=== PATIENT | female | born 1985 | race Caucasian/White ===

== ENCOUNTER → 2017-01-09 | Outpatient (CLI) | payer OTHER ==
--- NOTE | 2017-01-09 15:47 | US ---
EXAMINATION TYPE: US OB <= 14 wk fetus DATE OF EXAM: 01/09/2017 COMPARISON: NONE CLINICAL HISTORY: O76 ABSENT HEART TONES. EXAM PERFORMED: Transabdominal (TA) EXAM MEASUREMENTS: GESTATIONAL AGE / DATING Physician Established: not established yet Dates by LMP: (16 weeks/3 days) EDC: 06/23/2017 Dates by First Scan: no previous here Dates by Current Scan for: non viable iup MATERNAL ANATOMY Uterus: 13.2 x 6.7 x 9.0cm Right Ovary: 3.2 x 1.8 x 1.7cm Left Ovary: 2.8 x 1.5 x 1.9cm Post CDS / Adnexa: wnl Presence of free fluid: none seen GESTATION / SURVEY CRL: 1.7cm (8 weeks/1 days) MSD: 5.5cm (11 weeks/4 days) Yolk Sac (normal less than 6mm): not seen Heart Rate: 0 bpm Demise Results called to Joselin in the office at the time of the exam; pt sent back to the office. IMPRESSION: 1. A pole is seen. A heart rate could not be detected. Report was sent to the patient's referri ng clinician.
== END | disposition home or self-care (01) ==
LOC: RADUSWWP 15:15
PROVIDERS: ATTEND Obstetrics & Gynecology Obstetrics
DX: O76 Abnormality in fetal heart rate and rhythm complicating labor and delivery (principal); Z3A.00 Weeks of gestation of pregnancy not specified
CPT/HCPCS: 76801

== ENCOUNTER 2017-01-10 06:29 | Emergency (ER) | payer OTHER ==
[2017-01-10] MEDS ORDERED: MORPHINE SULFATE 4 MG/ML SYRINGE IVP STA (07:50)
[2017-01-10 08:01] LABS: Basophils % (A) 0 %; CH 34.2; CHCM 36.6; Eosinophils # (A) 0.1 k/uL (0-0.7); Eosinophils % (A) 1 %; HCT 37.2 % (34.0-46.0); HDW 2.58; HGB 13.2 gm/dL (11.4-16.0); Luc # (Auto) 0.07; Luc % (Auto) 1; Lymphocytes % (A) 12 %; MCH 33.2 pg (25.0-35.0); MCHC 35.4 g/dL (31.0-37.0); MCV 93.9 fL (80.0-100.0); Mean Platelet Volume 8.1; Monocytes # (A) 0.3 k/uL (0-1.0); Monocytes % (A) 4 %; Neutrophils # (A) 6.9 k/uL (1.3-7.7); Neutrophils % (A) 83 %; RBC 3.97 m/uL (3.80-5.40); RDW 12.5 % (11.5-15.5); WBC 8.4 k/uL (3.8-10.6); WBC (Perox) 8.43
[2017-01-10 08:12] LABS: Anion Gap 8 mmol/L; Blood Urea Nitrogen 7 mg/dL (7-17); Calcium 9.2 mg/dL (8.4-10.2); Carbon Dioxide 25 mmol/L (22-30); Chloride 106 mmol/L (98-107); Glucose 90 mg/dL (74-99); Non-African American GFR(MDRD) >60 (>60 ml/min/1.73 sqM); Sodium 139 mmol/L (137-145)
[2017-01-10 08:28] LABS: HCG,Quantitative Serum 11014.2 mIU/mL
--- NOTE | 2017-01-10 08:49 | ED ---
General Adult HPI - General Chief complaint: Vaginal Bleeding Stated complaint: miscarriage Time Seen by Provider: 01/10/17 07:03 Source: patient, RN notes reviewed Mode of arrival: ambulatory Limitations: no limitations - History of Present Illness Initial comments: 31-year-old female presenting with vaginal bleeding. Patient is currently 16 weeks by LMP. She had an outpatient ultrasound yesterday that showed demise at approximately 8-9 weeks gestation. Patient began bleeding this morning, passing large clots. Is also having abdominal cramping. Patient is uncertain of her blood type. She has not had outpatient TECHNICAL COORDINATOR follow-up. She does have an appointment at 9:30 this morning with OB. Patient is - Related Data Home Medications Medication Instructions Recorded Confirmed Acetaminophen [Tylenol Extra 500 mg PO DAILY PRN 01/10/17 01/10/17 Strength] Pediatric Multivitamin No.30 1 tab PO DAILY 01/10/17 01/10/17 [Multivitamin Children's Gummies] Allergies Allergy/AdvReac Type Severity Reaction Status Date / Time amoxicillin Allergy Unknown Verified 01/10/17 08:08 Review of Systems ROS Statement: Those systems with pertinent positive or pertinent negative responses have been documented in the HPI. ROS Other: All systems not noted in ROS Statement are negative. Past Medical History Past Medical History: No Reported History Additional Past Medical History / Comment(s): post depression History of Any Multi-Drug Resistant Organisms: None Reported Additional Past Surgical History / Comment(s): varicose vein sx Past Psychological History: No Psychological Hx Reported Smoking Status: Never smoker Past Alcohol Use History: Occasional Past Drug Use History: None Reported General Exam Limitations: no limitations General appearance: alert, in no apparent distress Head exam: Present: atraumatic, normocephalic Eye exam: Present: normal appearance, PERRL ENT exam: Present: normal exam, mucous membranes moist Neck exam: Present: normal inspection. Absent: tenderness, meningismus Respiratory exam: Present: normal lung sounds bilaterally. Absent: respiratory distress, wheezes Cardiovascular Exam: Present: regular rate, normal rhythm GI/Abdominal exam: Present: soft. Absent: distended, tenderness External exam: Present: normal external exam Speculum exam: Present: vaginal bleeding, other (Cervix is open, there is tissue projecting from the cervical os.) Extremities exam: Present: normal inspection, normal capillary refill. Absent: pedal edema Neurological exam: Present: alert, oriented X3, CN II-XII intact. Absent: motor sensory deficit Psychiatric exam: Present: normal affect, normal mood Skin exam: Present: warm, dry. Absent: cyanosis, diaphoretic Course Vital Signs 01/10/17 06:30 Temperature 96.9 F L Pulse Rate 61 Respiratory 18 Rate Blood Pressure 103/51 O2 Sat by Pulse 100 Oximetry - Reevaluation(s) Reevaluation #1: 01/10/17 08:54 Emergency Department patient experiences some additional cramping and continued passage of blood clots, no tissue. Medical Decision Making - Medical Decision Making 31-year-old female presenting with impending miscarriage. Patient had outpatient ultrasound yesterday that showed demise at 9 weeks, she is 16 weeks by LMP. Examination shows normal vital signs, well-appearing patient, there is vaginal bleeding on pelvic exam, with dilated cervical os and tissue presenting. Laboratory studies are obtained including serum quantitative, which is 11,000 which is consistent with more recent demise. Patient does admit to cramping lower abdominal pain which began about 2 weeks ago and has been intermittent. Hemoglobin stable, but type O+. Patient has an appointment with TECHNICAL COORDINATOR at 9: 30. She'll be discharged so that she may keep this appointment. - Lab Data Result diagrams: 01/10/17 07:45 01/10/17 07:45 Lab Results 01/10/17 01/10/17 01/10/17 Range/Units 07:45 07:45 07:45 WBC 8.4 (3.8-10.6) k/uL RBC 3.97 (3.80-5.40) m/uL Hgb 13.2 (11.4-16.0) gm/dL Hct 37.2 (34.0-46.0) % MCV 93.9 (80.0-100.0) fL MCH 33.2 (25.0-35.0) pg MCHC 35.4 (31.0-37.0) g/dL RDW 12.5 (11.5-15.5) % Plt Count 209 (150-450) k/uL Neutrophils % 83 % Lymphocytes % 12 % Monocytes % 4 % Eosinophils % 1 % Basophils % 0 % Neutrophils # 6.9 (1.3-7.7) k/uL Lymphocytes # 1.0 (1.0-4.8) k/uL Monocytes # 0.3 (0-1.0) k/uL Eosinophils # 0.1 (0-0.7) k/uL Basophils # 0.0 (0-0.2) k/uL Sodium 139 (137-145) mmol/L Potassium 4.0 (3.5-5.1) mmol/L Chloride 106 (98-107) mmol/L Carbon Dioxide 25 (22-30) mmol/L Anion Gap 8 mmol/L BUN 7 (7-17) mg/dL Creatinine 0.57 (0.52-1.04) mg/dL Est GFR (MDRD) Af Amer >60 (>60 ml/min/1.73 sqM) Est GFR (MDRD) Non-Af >60 (>60 ml/min/1.73 sqM) Glucose 90 (74-99) mg/dL Calcium 9.2 (8.4-10.2) mg/dL HCG, Quant 68913.2 mIU/mL Blood Type O Positive Blood Type Recheck No Antibody Screen NEGATIVE Spec Expiration Date 01/13/20172344 Disposition Clinical Impression: Incomplete Disposition: HOME SELF-CARE Condition: Good Instructions: Miscarriage (ED) Referrals: Bree Orlando DO [Primary Care Provider] - 1-2 days Concepción Johnston DO [Doctor of Osteopathic Medicine] - 1-2 days Time of Disposition: 08:49
[2017-01-10 09:10] VITALS: BP 108/72; PULSE 90; RESP 20; TEMP 97.8
== END 2017-01-10 09:05 | disposition home or self-care (01) ==
LOC: EC 06:29
DX: O03.4 Incomplete spontaneous abortion without complication (principal); Z79.899 Other long term (current) drug therapy; Z88.0 Allergy status to penicillin; Z3A.16 16 weeks gestation of pregnancy
CPT/HCPCS: 36415; 86900; 86901; 80048; 85025; 86850; 84702; 99284; 96374; J2270; 88305

== ENCOUNTER → 2017-01-11 | Outpatient (CLI) | payer OTHER | END | disposition home or self-care (01) | LOC: LABWHC1 10:01 | PROVIDERS: ATTEND Obstetrics & Gynecology Obstetrics | DX: O02.1 Missed abortion (principal) | CPT/HCPCS: 36415; 84702 ==

== ENCOUNTER → 2017-01-18 | Outpatient (CLI) | payer OTHER | END | disposition home or self-care (01) | LOC: LABWHC1 10:16 | PROVIDERS: ATTEND Obstetrics & Gynecology Obstetrics | DX: O02.1 Missed abortion (principal) | CPT/HCPCS: 36415; 84702 ==

== ENCOUNTER → 2017-01-26 | Outpatient (CLI) | payer OTHER | END | disposition home or self-care (01) | LOC: LABWHC1 09:37 | PROVIDERS: ATTEND Obstetrics & Gynecology Obstetrics | DX: O02.1 Missed abortion (principal) | CPT/HCPCS: 36415; 84702 ==

== ENCOUNTER → 2017-02-10 | Outpatient (CLI) | payer OTHER | END | disposition home or self-care (01) | LOC: LABWHC1 10:04 | PROVIDERS: ATTEND Obstetrics & Gynecology Obstetrics | DX: O02.1 Missed abortion (principal) | CPT/HCPCS: 36415; 84702 ==

== ENCOUNTER → 2017-02-22 | Outpatient (CLI) | payer OTHER | END | disposition home or self-care (01) | LOC: LABWHC1 10:33 | PROVIDERS: ATTEND Obstetrics & Gynecology Obstetrics | DX: O02.1 Missed abortion (principal); Z3A.00 Weeks of gestation of pregnancy not specified | CPT/HCPCS: 36415; 84702 ==

== ENCOUNTER → 2017-03-09 | Outpatient (CLI) | payer OTHER ==
[2017-03-09 13:41] LABS: CH 32.4; CHCM 33.4; HCT 38.5 % (34.0-46.0); HGB 12.9 gm/dL (11.4-16.0); MCH 32.6 pg (25.0-35.0); MCHC 33.5 g/dL (31.0-37.0); MCV 97.3 fL (80.0-100.0); Mean Platelet Volume 7.5; RBC 3.96 m/uL (3.80-5.40); RDW 12.1 % (11.5-15.5); WBC 5.3 k/uL (3.8-10.6)
[2017-03-09 19:03] LABS: Treponemal Ab Non-Reactive (Non-Reactive)
== END | disposition home or self-care (01) ==
LOC: LABWHC1 12:25
PROVIDERS: ATTEND Obstetrics & Gynecology Obstetrics
DX: O02.1 Missed abortion (principal); Z20.2 Contact with and (suspected) exposure to infections with a predominantly sexual mode of transmission
CPT/HCPCS: 36415; 84702; 85027; 86780; 87340; 87390

== ENCOUNTER 2017-03-16 11:34 | Day surgery (SDC) | payer OTHER ==
[2017-03-15 10:41] VITALS: BMI 23.3
--- NOTE | 2017-03-15 16:56 | P.GSHP ---
History of Present Illness H&P Date: 03/15/17 Chief Complaint: retained POC this is a 31 yo that had a spontaneous Ab in january. she has been managing it expectantly, quantative BHCG have been falling appropriately. she noted 2 episodes of "gushing" brught red bleeding. ultrasound done 03/14 noted retained POC. she desires SDC at this time. - Constitutional Constitutional: Reports fatigue - Gastrointestinal Gastrointestinal: Denies constipation, Denies diarrhea - Genitourinary (Female) Comment: irregular menses Past Medical History Past Medical History: No Reported History, Skin Disorder Additional Past Medical History / Comment(s): eczema rt ankle, History of Any Multi-Drug Resistant Organisms: None Reported Past Surgical History: Breast Surgery Additional Past Surgical History / Comment(s): varicose vein surgery left leg, cyst drained left breast Past Anesthesia/Blood Transfusion Reactions: Motion Sickness Additional Past Anesthesia/Blood Transfusion Reaction / Comment(s): migraine post with first epidural amesthesia Smoking Status: Never smoker - Past Family History Mother Family Medical History: Cancer Medications and Allergies Home Medications Medication Instructions Recorded Confirmed Type Ibuprofen 600 mg PO DAILY PRN 03/15/17 03/15/17 History Allergies Allergy/AdvReac Type Severity Reaction Status Date / Time amoxicillin Allergy Unknown Verified 03/15/17 10:31 Surgical - Exam Osteopathic Statement: *. No significant issues noted on an osteopathic structural exam other than those noted in the History and Physical/Consult. - General well developed, well nourished, moderate pain - Respiratory clear to auscultation - Cardiovascular Rhythm: regular - Abdomen Abdomen: soft, tender - Genitourinary normal external genitalia, normal perineum - Rectum Rectum: normal sphincter tone - Musculoskeletal normal gait - Psychiatric oriented to time, oriented to person, oriented to place Assessment and Plan (1) Incomplete Narrative/Plan: Plan for Suction dilation and currettage 03/16. surgery was reviewed with pt in detail, risks reveiwed with pt and infomred consent obtained. Status: Acute
[~2017-03-16 11:34] MED LIST: Pre Op ABX Message 1 EACH MISC MISCELLANE ONE
[2017-03-16] MEDS ORDERED: LACTATED RINGERS 1,000 ML IV ONE (12:15)
[2017-03-16] MEDS ORDERED: LIDOCAINE 1% 20 ML VIAL (10MG/ML) FOR IV START INTRADERMA ONE (12:16)
[2017-03-16] MEDS ORDERED: SCOPOLAMINE 1.5MG/72HR PATCH TRANSDERM ONE (12:45)
[2017-03-16] MEDS ORDERED: DEXAMETHASONE SOD PHOS (MDV) 100 MG/10 ML VIAL IVP ONE (12:46)
[2017-03-16] MEDS ORDERED: ONDANSETRON 4 MG/2 ML VIAL IVP ONE (12:48)
[2017-03-16] MEDS ORDERED: MIDAZOLAM 2 MG/2 ML VIAL ONE (13:34)
[2017-03-16] MEDS ORDERED: LIDOCAINE 1% INJ 10MG/ML (20 ML MDV) ONE (13:34)
[2017-03-16] MEDS ORDERED: fentaNYL (PF) 50 MCG/ML 2 ML AMP ONE (13:34)
[2017-03-16] MEDS ORDERED: PROPOFOL 10 MG/ML 20 ML VIAL IV ONE (13:34)
[2017-03-16] MEDS ORDERED: METHYLERGONOVINE 0.2 MG/ML 1 ML AMP ONE (13:34)
[2017-03-16] MEDS ORDERED: ONDANSETRON 4 MG/2 ML VIAL IVP PRN (13:53)
[2017-03-16] MEDS ORDERED: IBUPROFEN 600 MG TAB PO PRN (13:54)
--- NOTE | 2017-03-16 13:58 | P.OP ---
Date of Procedure: 03/16/17 Preoperative Diagnosis: Retained products of conception Postoperative Diagnosis: Same Procedure(s) Performed: Suction dilation and curettage Anesthesia: MAC Surgeon: Concepción Johnston Estimated Blood Loss (ml): 10 IV fluids (ml): 350 Urine output (ml): 50 Pathology: other (Products of conception) Condition: stable Disposition: PACU Indications for Procedure: Trudy is a very pleasant 31-year-old 012 that presented to the emergency department early January with complaints of positive test and vaginal bleeding. She was diagnosed with a complete AB and was sent home patient was followed up in the office clots were dropping hemoglobin was stable until last week when she noted a large gush of blood patient stated only lasted one time and then bleeding ceased. She then had another gush of blood this week ultrasound was ordered revealing retained products of conception. She elected for surgical management at this time. She was counseled to risks benefits of the procedure informed consent was obtained Operative Findings: Moderate amount of products of conception were obtained via suction Description of Procedure: Patient was taken to the operating room where general anesthesia was obtained without difficulty by the anesthesia department. She was then prepped and draped in normal sterile fashion in dorsal lithotomy position. A red rubber catheter was used to drain the bladder clear yellow urine. A weighted speculum was placed in the posterior vaginal vault the anterior lip of the cervix was grasped with a single-tooth tenaculum. The endocervical canal was then dilated to 18-Maori. The suction curette, 8 curved. This was placed into the cavity and the suction device was then activated. It was repeated until no further products were noted. A sharp curettage was then performed the uterus was noted to have a slightly gritty texture in all 4 quadrants. At this point a single tooth tenaculum was taken off of the anterior lip of the cervix hemostasis was appreciated. Minimal amount of bleeding was noted coming from the uterus. Counts were correct 2 patient tolerated procedure well and was taken to the recovery room awake and in stable condition
[2017-03-16 14:14] VITALS: TEMP 97.1
[2017-03-16] MEDS ORDERED: HYDROmorphone 1 MG/ML 1 ML SYRINGE IVP ONE (14:18)
[2017-03-16] MEDS ORDERED: KETOROLAC 30 MG/ML 1 ML VIAL IVP ONE (14:18)
[2017-03-16 14:34] VITALS: RESP 18
[2017-03-16 15:04] VITALS: BP 110/62; PULSE 52
== END 2017-03-16 15:14 | disposition home or self-care (01) ==
LOC: OR 11:34
PROVIDERS: ATTEND Obstetrics & Gynecology Obstetrics
DX: O03.4 Incomplete spontaneous abortion without complication (principal); Z88.1 Allergy status to other antibiotic agents
CPT/HCPCS: 59812; 88305; J2250; J2210; J2405; J2001; J3010; J1885; J1170; J1100; J2704

== ENCOUNTER → 2017-03-30 | Outpatient (CLI) | payer OTHER | END | disposition home or self-care (01) | LOC: LABWHC1 10:52 | PROVIDERS: ATTEND Obstetrics & Gynecology Obstetrics | DX: O02.1 Missed abortion (principal) | CPT/HCPCS: 36415; 84702 ==

== ENCOUNTER 2018-04-26 10:43 | Emergency (ER) | payer OTHER ==
[2018-04-26 11:06] VITALS: RESP 18
[2018-04-26] MEDS ORDERED: SULFAMETH-TMP DS STARTER PACK 2 TAB BTL PO STA (12:41)
--- NOTE | 2018-04-26 12:44 | ED ---
General Adult HPI - General Chief complaint: Skin/Abscess/Foreign Body Stated complaint: ABSCESS ON STOMACH Time Seen by Provider: 04/26/18 11:11 Source: patient, RN notes reviewed Mode of arrival: ambulatory Limitations: no limitations - History of Present Illness Initial comments: 33-year-old female presents to the emergency department for a chief complaint of abscess times one day. Patient states she noticed this abscess last night and has worsened today. Patient states she does have a history of sebaceous cysts. Patient denies a fever or chills. Patient denies any abdominal pain. Patient denies any drainage of the abscess. Patient denies history of MRSA. Patient states she has not had an abscess here before. Patient has no other complaints at this time including shortness of breath, chest pain, abdominal pain, nausea or vomiting, headache, or visual changes. - Related Data Home Medications Medication Instructions Recorded Confirmed Ibuprofen 600 mg PO DAILY PRN 03/15/17 03/15/17 Previous Rx's Medication Instructions Recorded Sulfamethoxazole/Trimethoprim 1 each PO BID 10 Days tablet 04/26/18 [Bactrim DS 800-160 mg] Allergies Allergy/AdvReac Type Severity Reaction Status Date / Time amoxicillin Allergy Unknown Verified 04/26/18 11:06 doxycycline Allergy Rash/Hives Verified 04/26/18 11:06 Review of Systems ROS Statement: Those systems with pertinent positive or pertinent negative responses have been documented in the HPI. ROS Other: All systems not noted in ROS Statement are negative. Past Medical History Past Medical History: No Reported History, Skin Disorder Additional Past Medical History / Comment(s): eczema rt ankle, History of Any Multi-Drug Resistant Organisms: None Reported Past Surgical History: Breast Surgery Additional Past Surgical History / Comment(s): varicose vein surgery left leg, cyst drained left breast Past Anesthesia/Blood Transfusion Reactions: Motion Sickness Additional Past Anesthesia/Blood Transfusion Reaction / Comment(s): migraine post with first epidural amesthesia Past Psychological History: No Psychological Hx Reported Smoking Status: Never smoker Past Alcohol Use History: None Reported Past Drug Use History: None Reported - Past Family History Mother Family Medical History: Cancer General Exam Limitations: no limitations General appearance: alert, in no apparent distress Head exam: Present: atraumatic, normocephalic, normal inspection Eye exam: Present: normal appearance, PERRL, EOMI. Absent: scleral icterus, conjunctival injection ENT exam: Present: normal exam, mucous membranes moist Neck exam: Present: normal inspection, full ROM. Absent: tenderness, meningismus, lymphadenopathy Respiratory exam: Present: normal lung sounds bilaterally. Absent: respiratory distress, wheezes, rales, rhonchi, stridor Cardiovascular Exam: Present: regular rate, normal rhythm, normal heart sounds. Absent: systolic murmur, diastolic murmur, rubs, gallop, clicks GI/Abdominal exam: Present: soft, normal bowel sounds, other (There is a 1 cm x 1 cm abscess just superior and lateral to the umbilicus, fluctuant to palpation) . Absent: distended, tenderness, guarding, rebound, rigid Course Vital Signs 04/26/18 04/26/18 11:03 12:59 Temperature 97.8 F 97.2 F L Pulse Rate 71 61 Respiratory 18 18 Rate Blood Pressure 104/67 113/67 O2 Sat by Pulse 100 100 Oximetry Procedures - Incision & Drainage Consent Obtained: verbal consent Site: abdomen Size (cm): 1 Anesthetic Used: lidocaine 1% I&D Cleaning Method: Chloroprep Scalpel Used: #11 Needle Aspiration Performed?: Yes I&D Drainage Obtained: Pus Patient Tolerated Procedure: well, no complications Medical Decision Making - Medical Decision Making 33-year-old female presents to the emergency department for chief complaint of abscess to the abdomen. Patient has a history of sebaceous cysts. Patient states this occurred last night and worsened this morning. On exam patient is a 1 cm x 1 cm fluctuant abscess noted. No cellulitic infection. No abdominal tenderness on exam. This was numbed with lidocaine and incised with an 11 blade. Purulent material was expelled. Loculations were broken with hemostat. Patient was given starter pack of Bactrim as well as prescription for Bactrim. She will follow up with dermatology. She'll return here if she has any worsening symptoms. Discussed signs of cellulitis with her and to follow- up if these occur.. Disposition Clinical Impression: Abscess Disposition: HOME SELF-CARE Condition: Good Instructions: Abscess Incision and Drainage (ED), Abscess (ED) Additional Instructions: Please take antibiotic as directed. Please apply warm compresses. Please follow-up with dermatology in 1-2 days. Please return to the emergency department if you have any worsening symptoms. Prescriptions: Sulfamethoxazole/Trimethoprim [Bactrim DS 800-160 mg] 1 each PO BID 10 Days tablet Is patient prescribed a controlled substance at d/c from ED?: No Referrals: Bree Orlando DO [Primary Care Provider] - 1-2 days Helena Espinal MD [STAFF PHYSICIAN] - 1-2 days Time of Disposition: 12:38
[2018-04-26 13:03] VITALS: BP 113/67; PULSE 61; TEMP 97.2
== END 2018-04-26 12:59 | disposition home or self-care (01) ==
LOC: EC 10:43
DX: L02.211 Cutaneous abscess of abdominal wall (principal); Z88.0 Allergy status to penicillin; Z88.1 Allergy status to other antibiotic agents; Z98.890 Other specified postprocedural states
CPT/HCPCS: 10061; 87070; 87205; 99283

== ENCOUNTER → 2018-05-08 | Outpatient (CLI) | payer OTHER ==
--- NOTE | 2018-05-09 08:14 | MM ---
Reason for exam: screening (asymptomatic). Last mammogram was performed 1 year and 1 month ago. History: Family history of breast cancer in mother at age 30. Took hormonal contraceptives for 3 years. Physical Findings: A clinical breast exam by your physician is recommended on an annual basis and results should be correlated with mammographic findings. MG 3D Screening Mammo W/Cad Bilateral CC and MLO view(s) were taken. Prior study comparison: March 30, 2017, bilateral MG screening mammo w CAD. The breast tissue is heterogeneously dense. This may lower the sensitivity of mammography. There is no discrete abnormality. No significant changes when compared with prior studies. ASSESSMENT: Negative, BI-RAD 1 RECOMMENDATION: Routine screening mammogram of both breasts in 1 year.
== END | disposition home or self-care (01) ==
LOC: RADMAMWWP 07:42
PROVIDERS: ATTEND Family Medicine
DX: Z12.31 Encounter for screening mammogram for malignant neoplasm of breast (principal)
CPT/HCPCS: 77063; 77067

== ENCOUNTER → 2018-07-02 | Outpatient (CLI) | payer OTHER ==
--- NOTE | 2018-07-02 12:01 | US ---
EXAMINATION TYPE: US transvaginal DATE OF EXAM: 07/02/2018 COMPARISON: OB US CLINICAL HISTORY: N84.1 POLYP. Vaginal polyp per patient history on movie extra exam today TECHNIQUE: Transvaginal (TV) per order. Date of LMP: 06/20/2018 EXAM MEASUREMENTS: Uterus: 7.8 x 4.6 x 3.9 cm Endometrial Stripe: 0.7 cm Right Ovary: 2.4 x 2.0 x 1.7 cm Left Ovary: 3.3 x 2.7 x 2.4 cm 1. Uterus: Anteverted ; no polyp is seen as vaginal canal was surveyed by TV US 2. Endometrium: thickness is wnl on day 13LMP 3. Right Ovary: multifollicular with largest follicular cyst = 0.5 x 0.6 x 0.5cm 4. Left Ovary: multifollicular with largest follicular cyst = 1.7 x 1.6 x 1.2cm * color flow imaging is documented in bilateral ovary. 5. Bilateral Adnexa: wnl 6. Posterior cul-de-sac: wnl IMPRESSION: 1. Bilateral follicular cysts noted. 2. No distinct polyp identified at this time.
== END | disposition home or self-care (01) ==
LOC: RADUSWWP 10:44
PROVIDERS: ATTEND Family Medicine
DX: N83.02 Follicular cyst of left ovary (principal); N83.01 Follicular cyst of right ovary
CPT/HCPCS: 76830

== ENCOUNTER 2019-06-12 10:22 | Emergency (ER) | payer OTHER ==
[2019-06-12 10:26] VITALS: BP 97/66; PULSE 59; RESP 18; TEMP 97.9
--- NOTE | 2019-06-12 11:04 | ED ---
Lower Extremity Injury HPI - General Chief Complaint: Extremity Injury, Lower Stated Complaint: Ankle injury Time Seen by Provider: 06/12/19 10:57 Source: patient Mode of arrival: ambulatory Limitations: no limitations - History of Present Illness Initial Comments: Patient is a 34-year-old female presenting to the emergency Department with complaints of left ankle pain for 2 days. Patient states she is ago she tripped over a pair of boots rolling her left ankle. She states she did ice it initially and it did help with her symptoms. Patient states last night it was aching more and keeping her up during the night. Patient was concerned that she might have fractured something. She has no other injuries from her fall. She has no history of prior surgeries or injuries to the left foot or ankle. She has no other complaints at this time. On arrival to ER, her vital signs are stable. - Related Data Home Medications Medication Instructions Recorded Confirmed Ibuprofen 600 mg PO DAILY PRN 03/15/17 03/15/17 Previous Rx's Medication Instructions Recorded Sulfamethoxazole/Trimethoprim 1 each PO BID 10 Days tablet 04/26/18 [Bactrim DS 800-160 mg] Allergies Allergy/AdvReac Type Severity Reaction Status Date / Time amoxicillin Allergy Unknown Verified 04/26/18 11:06 doxycycline Allergy Rash/Hives Verified 04/26/18 11:06 Review of Systems ROS Statement: Those systems with pertinent positive or pertinent negative responses have been documented in the HPI. ROS Other: All systems not noted in ROS Statement are negative. Past Medical History Past Medical History: No Reported History, Skin Disorder Additional Past Medical History / Comment(s): eczema rt ankle, History of Any Multi-Drug Resistant Organisms: None Reported Past Surgical History: Breast Surgery Additional Past Surgical History / Comment(s): varicose vein surgery left leg, cyst drained left breast Past Anesthesia/Blood Transfusion Reactions: Motion Sickness Additional Past Anesthesia/Blood Transfusion Reaction / Comment(s): migraine post with first epidural amesthesia Past Psychological History: No Psychological Hx Reported Smoking Status: Never smoker Past Alcohol Use History: Occasional Past Drug Use History: None Reported - Past Family History Mother Family Medical History: Cancer General Exam - General Exam Comments Initial Comments: GENERAL: Well-appearing, well-nourished and in no acute distress. HEAD: Atraumatic, normocephalic. EYES: Pupils equal round and reactive to light, extraocular movements intact, sclera anicteric, conjunctiva are normal. ENT: Moist mucous membranes. LUNGS: Breath sounds clear to auscultation bilaterally and equal. No wheezes rales or rhonchi. HEART: Regular rate and rhythm without murmurs, rubs or gallops. ABDOMEN: Soft, nontender, normoactive bowel sounds. EXTREMITIES: Patient has mild pain with palpation of the lateral malleolus of the left ankle. There is no swelling or overlying erythema. There is no swelling into the left foot. Patient does have slightly decreased range of motion secondary to pain. She is neurovascular intact. NEUROLOGICAL: Normal speech, normal gait. PSYCH: Normal mood, normal affect. SKIN: Warm, Dry, normal turgor, no rashes or lesions noted. Limitations: no limitations Course Vital Signs 06/12/19 10:24 Temperature 97.9 F Pulse Rate 59 L Respiratory 18 Rate Blood Pressure 97/66 O2 Sat by Pulse 97 Oximetry Medical Decision Making - Medical Decision Making Patient is a 34-year-old female presented with left ankle pain for 2 days after tripping over her boots. There is no swelling, normal range of motion. X-rays reveal no acute fractures dislocations. I discussed these findings with the patient and that this is most likely an ankle sprain. I recommended an ankle brace for support as well as Motrin and ice for comfort. She is in agreement with this plan of care. She is stable for discharge at this time. Disposition Clinical Impression: Left ankle sprain Disposition: HOME SELF-CARE Condition: Stable Instructions (If sedation given, give patient instructions): Ankle Sprain (ED) Additional Instructions: Please return to the Emergency Department if symptoms worsen or any other concerns. Use ankle brace for support during work. Use Motrin and ice for pain relief. Follow-up with PCP if symptoms persist after one to 2 weeks. Is patient prescribed a controlled substance at d/c from ED?: No Referrals: Bree Orlando DO [Primary Care Provider] - 1-2 days
--- NOTE | 2019-06-12 11:42 | XR ---
EXAMINATION TYPE: XR ankle complete LT DATE OF EXAM: 06/12/2019 COMPARISON: None HISTORY: Pain, roll TECHNIQUE: Three-view left ankle FINDINGS: Ankle mortise is intact. Soft tissues appear normal. No acute fracture or dislocation is ev ident. IMPRESSION: 1. Normal three-view left ankle. 2. Follow-up exam can be performed 7-10 days from acute trauma for continued pain.
== END 2019-06-12 12:18 | disposition home or self-care (01) ==
LOC: EC 10:22
DX: S93.402A Sprain of unspecified ligament of left ankle, initial encounter (principal); Z88.0 Allergy status to penicillin; Z88.1 Allergy status to other antibiotic agents; W22.8XXA Striking against or struck by other objects, initial encounter; X50.1XXA Overexertion from prolonged static or awkward postures, initial encounter
CPT/HCPCS: 99283

== ENCOUNTER 2020-04-01 14:10 | Emergency (ER) | payer OTHER ==
[2020-04-01] MEDS ORDERED: IBUPROFEN 600 MG TAB PO STA (14:56)
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
[2020-04-01 16:48] VITALS: BP 118/68; PULSE 70; RESP 18; TEMP 98
== END 2020-04-01 16:47 | disposition home or self-care (01) ==
LOC: EC 14:10
DX: M54.9 Dorsalgia, unspecified (principal); M25.571 Pain in right ankle and joints of right foot; Z88.0 Allergy status to penicillin; Z88.1 Allergy status to other antibiotic agents
CPT/HCPCS: 70450; 71046; 72125; 99284

== ENCOUNTER 2020-04-10 10:39 | Emergency (ER) | payer OTHER ==
[2020-04-10 10:55] VITALS: RESP 18; TEMP 98
[2020-04-10] MEDS ORDERED: SODIUM CHLORIDE 0.9% 500 ML 500 ML IV ONE (11:18)
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
[2020-04-10 12:04] LABS: Basophils % (A) 0 %; Eosinophils # (A) 0.1 k/uL (0-0.7); Eosinophils % (A) 2 %; HCT 39.3 % (34.0-46.0); HGB 13.5 gm/dL (11.4-16.0); Lymphocytes # (A) 0.8 k/uL (1.0-4.8); Lymphocytes % (A) 15 %; MCH 32.5 pg (25.0-35.0); MCHC 34.4 g/dL (31.0-37.0); MCV 94.5 fL (80.0-100.0); Mean Platelet Volume 7.6; Monocytes # (A) 0.3 k/uL (0-1.0); Monocytes % (A) 5 %; Neutrophils # (A) 4.1 k/uL (1.3-7.7); Neutrophils % (A) 77 %; Platelet Count 259 k/uL (150-450); RBC 4.16 m/uL (3.80-5.40); RDW 11.8 % (11.5-15.5); WBC 5.4 k/uL (3.8-10.6)
[2020-04-10 12:30] LABS: ALT 13 U/L (4-34); AST 19 U/L (14-36); African American GFR (CKD) >90 (>60 ml/min/1.73 sqM); Albumin 4.4 g/dL (3.5-5.0); Alkaline Phosphatase 82 U/L (38-126); Anion Gap 5 mmol/L; Blood Urea Nitrogen 12 mg/dL (7-17); Calcium 9.3 mg/dL (8.4-10.2); Carbon Dioxide 28 mmol/L (22-30); Chloride 108 mmol/L (98-107); Glucose 93 mg/dL (74-99); Lipase 45 U/L (23-300); Non-African American GFR(CKD) >90 (>60 ml/min/1.73 sqM); Potassium 4.3 mmol/L (3.5-5.1); Sodium 141 mmol/L (137-145); Total Bilirubin 0.6 mg/dL (0.2-1.3); Total Protein 7.5 g/dL (6.3-8.2)
[2020-04-10 13:47] LABS: Appearance,Urine Clear (Clear); Bilirubin,Urine Negative (Negative); Blood,Urine Small (Negative); Color,Urine Yellow; Glucose,Urine (UA) Negative (Negative); Ketones,Urine Negative (Negative); Leukocyte Esterase,Urine Negative (Negative); Mucus,Urine Many /hpf; Nitrite,Urine Negative (Negative); PH, Urine 6.5 (5.0-8.0); Protein,Urine Negative (Negative); RBC,Urine 10 /hpf (0-5); Specific Gravity,Urine 1.018 (1.001-1.035); Squamous Epithelial Cell,Urine <1 /hpf (0-4); Urobilinogen,Urine <2.0 mg/dL (<2.0); WBC,Urine 1 /hpf (0-5)
[2020-04-10] MEDS ORDERED: ORPHENADRINE 30 MG/ML 2 ML VIAL IVP STA (13:49)
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
[2020-04-10 14:02] VITALS: BP 128/65; PULSE 70
[2020-04-10] MEDS ORDERED: LORazepam 1 MG TAB PO STA (14:04)
[2020-04-10] MEDS ORDERED: ACET/COD 300 MG/30 MG STARTER PACK 6 TAB BTL PO STA (14:06)
== END 2020-04-10 14:52 | disposition home or self-care (01) ==
LOC: EC 10:39
DX: S30.1XXA Contusion of abdominal wall, initial encounter (principal); M54.2 Cervicalgia; M25.579 Pain in unspecified ankle and joints of unspecified foot; M25.519 Pain in unspecified shoulder; Z79.899 Other long term (current) drug therapy; Z88.0 Allergy status to penicillin; Z88.1 Allergy status to other antibiotic agents; Z87.2 Personal history of diseases of the skin and subcutaneous tissue; V43.52XA Car driver injured in collision with other type car in traffic accident, initial encounter; Y92.410 Unspecified street and highway as the place of occurrence of the external cause; Y93.89 Activity, other specified
CPT/HCPCS: 36415; 80053; 83690; 85025; 81001; 74177; 96374; 99284; J2360; Q9967

== ENCOUNTER → 2020-11-11 | Outpatient (CLI) | payer OTHER ==
[2020-11-11 13:52] LABS: Appearance,Urine Clear (Clear); Bilirubin,Urine Negative (Negative); Blood,Urine Negative (Negative); Color,Urine Light Yellow; Glucose,Urine (UA) Negative (Negative); Ketones,Urine 1+ (Negative); Leukocyte Esterase,Urine Negative (Negative); Nitrite,Urine Negative (Negative); Protein,Urine Negative (Negative); Urobilinogen,Urine <2.0 mg/dL (<2.0)
[2020-11-11 14:05] LABS: Partial Thromboplastin Time 24.1 sec (22.0-30.0); Prothrombin Time 10.3 sec (9.0-12.0)
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
[2020-11-11 19:34] LABS: HCT 34.8 % (37.2-46.3); HGB 11.7 g/dL (12.0-15.0); MCH 31.5 pg (27.0-32.0); MCHC 33.6 g/dL (32.0-37.0); MCV 93.5 fL (80.0-97.0); Mean Platelet Volume 11.5 fL (9.5-12.2); Platelet Count 217 X 10*3/uL (140-440); RBC 3.72 X 10*6/uL (4.10-5.20); RDW 13.1 % (11.5-14.5); WBC 5.65 X 10*3/uL (4.50-10.00)
[2020-11-11 21:26] LABS: African American GFR (CKD) 137.8 (60.0-200.0); Anion Gap 9.7 mmol/L (4.00-12.00); Calcium 8.8 mg/dL (8.7-10.3); Carbon Dioxide 23.3 mmol/L (21.6-31.8); Non-African American GFR(CKD) 118.9 (60.0-200.0); Potassium 3.9 mmol/L (3.5-5.5)
== END | disposition home or self-care (01) ==
LOC: LABWHC1 12:24
PROVIDERS: ATTEND Orthopaedic Surgery
DX: Z01.812 Encounter for preprocedural laboratory examination (principal); M54.12 Radiculopathy, cervical region; M54.16 Radiculopathy, lumbar region
CPT/HCPCS: 36415; 72050; 72114; 80048; 81003; 82306; 84439; 84443; 84481; 85027; 85610; 85730

== ENCOUNTER → 2021-05-11 | Outpatient (CLI) | payer OTHER ==
[2021-05-11 16:16] LABS: ALT 16 U/L (8-44); AST 19 U/L (13-35); African American GFR (CKD) 136.9 (60.0-200.0); Albumin 4.5 g/dL (3.8-4.9); Albumin/Globulin Ratio 2.14 (1.60-3.17); Alkaline Phosphatase 94 U/L (41-126); Bilirubin, Conjugated <0.20 mg/dL (0.20-0.40); Blood Urea Nitrogen 10.4 mg/dL (9.0-27.0); Globulin 2.1 g/dL (1.6-3.3); Non-African American GFR(CKD) 118.1 (60.0-200.0); Total Protein 6.6 g/dL (6.2-8.2)
== END | disposition home or self-care (01) ==
LOC: LABWHC1 09:16
PROVIDERS: ATTEND Anesthesiology Pain Medicine
DX: G44.309 Post-traumatic headache, unspecified, not intractable (principal); R00.1 Bradycardia, unspecified; R94.31 Abnormal electrocardiogram [ECG] [EKG]
CPT/HCPCS: 36415; 80076; 82565; 84520; 93005

== ENCOUNTER → 2021-10-26 | Outpatient (CLI) | payer OTHER ==
--- NOTE | 2021-10-28 14:55 | MM ---
Reason for Exam: Screening (asymptomatic). Last mammogram was performed 2 year(s) and 4 month(s) ago. Patient History: Menarche at age 12. First Full-Term at age 23. Patient has history of breast feeding. Hormonal Contraceptives for 3 years from age 26 until age 31. Mother had breast cancer, age 30. Last menstrual period: 10/02/2021 Risk Values: Marycruz 5 year model risk: 0.6%. NCI Lifetime model risk: 20.3%. Film Views: Bilateral CC views were taken. Bilateral MLO views were taken. Prior Study Comparison: 03/30/2017 Bilateral Screening Mammogram, [facility]. 05/08/2018 Bilateral Screening Mammogram, [facility]. 06/12/2019 Bilateral Diagnostic Mammogram, [facility]. Tissue Density: The breast tissue is heterogeneously dense. This may lower the sensitivity of mammography. Findings: Analyzed By CAD. There is no suspicious group of microcalcifications or new suspicious mass in either breast. Overall Assessment: Benign, BI-RAD 2 Management: Screening Mammogram of both breasts in 1 year. A clinical breast exam by your physician is recommended on an annual basis and results should be correlated with mammographic findings. Electronically signed and approved by: Rafael Mcintyre M.D. Radiologis
== END | disposition home or self-care (01) ==
LOC: RADMAMWWP 13:49
PROVIDERS: ATTEND Family Medicine
DX: Z12.31 Encounter for screening mammogram for malignant neoplasm of breast (principal); Z80.3 Family history of malignant neoplasm of breast
CPT/HCPCS: 77067

== ENCOUNTER → 2022-12-26 | Outpatient (CLI) | payer OTHER ==
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
== END | disposition home or self-care (01) ==
LOC: RADUSWWP 16:00
PROVIDERS: ATTEND Orthopaedic Surgery Orthopaedic Surgery of the Spine
DX: M54.16 Radiculopathy, lumbar region (principal); M54.50 Low back pain, unspecified; M53.3 Sacrococcygeal disorders, not elsewhere classified; M54.2 Cervicalgia
CPT/HCPCS: 93970

== ENCOUNTER → 2023-11-23 | Outpatient (CLI) | payer OTHER ==
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
== END | disposition home or self-care (01) ==
LOC: RADCTMAIN 07:17
PROVIDERS: ATTEND Orthopaedic Surgery Orthopaedic Surgery of the Spine
DX: M54.16 Radiculopathy, lumbar region (principal); M54.12 Radiculopathy, cervical region; M48.061 Spinal stenosis, lumbar region without neurogenic claudication
CPT/HCPCS: 72131

== ENCOUNTER → 2024-01-18 | Outpatient (CLI) | payer OTHER ==
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
== END | disposition home or self-care (01) ==
LOC: RADMRIMAIN 08:40
PROVIDERS: ATTEND Orthopaedic Surgery Orthopaedic Surgery of the Spine
DX: M54.12 Radiculopathy, cervical region (principal); M54.16 Radiculopathy, lumbar region
CPT/HCPCS: 72158; A9585

== ENCOUNTER 2024-10-14 20:29 | Emergency (ER) | payer OTHER ==
--- NOTE | 2024-10-14 20:55 | ED ---
Skin/Abscess/FB HPI - General Chief complaint: Skin/Abscess/Foreign Body Stated complaint: Tick bite Time Seen by Provider: 10/14/24 20:36 Source: patient, RN notes reviewed Mode of arrival: ambulatory Limitations: no limitations - History of Present Illness Initial comments: 39-year-old female presenting to the emergency department for encounter after a tick bite. 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 Patient removed the tick. She believes that the tick was attached for no longer than an hour. She states actually remove the head as well. She is presenting for prophylactic treatment against Lyme disease. - Related Data Home Medications Medication Instructions Recorded Confirmed Loratadine [Alavert] 10 mg PO DAILY 04/01/20 04/10/20 Ketorolac Tromethamine 10 mg PO QID 04/10/20 04/10/20 Previous Rx's Medication Instructions Recorded Baclofen 10 mg PO TID PRN #20 tab 04/01/20 Azithromycin [Zithromax] 500 mg PO DAILY #6 tab 10/14/24 Allergies Allergy/AdvReac Type Severity Reaction Status Date / Time amoxicillin Allergy Unknown Verified 04/10/20 13:22 doxycycline Allergy Rash/Hives Verified 04/10/20 13:22 meloxicam Allergy Unknown Verified 10/14/24 20:33 nickel Allergy Rash/Hives Verified 10/14/24 20:33 Review of Systems ROS Statement: Those systems with pertinent positive or pertinent negative responses have been documented in the HPI. ROS Other: All systems not noted in ROS Statement are negative. Past Medical History Past Medical History: No Reported History, Skin Disorder Additional Past Medical History / Comment(s): eczema rt ankle, History of Any Multi-Drug Resistant Organisms: None Reported Past Surgical History: Breast Surgery Additional Past Surgical History / Comment(s): varicose vein surgery left leg, cyst drained left breast Past Anesthesia/Blood Transfusion Reactions: Motion Sickness Additional Past Anesthesia/Blood Transfusion Reaction / Comment(s): migraine post with first epidural amesthesia Past Psychological History: No Psychological Hx Reported Smoking Status: Never smoker Past Alcohol Use History: Occasional Past Drug Use History: None Reported - Past Family History Mother Family Medical History: Cancer General Exam Limitations: no limitations General appearance: alert, in no apparent distress ENT exam: Present: normal exam, mucous membranes moist Neck exam: Present: normal inspection. Absent: tenderness, meningismus, lymphadenopathy Respiratory exam: Present: normal lung sounds bilaterally. Absent: respiratory distress, wheezes, rales, rhonchi, stridor Cardiovascular Exam: Present: regular rate, normal rhythm, normal heart sounds. Absent: systolic murmur, diastolic murmur, rubs, gallop, clicks GI/Abdominal exam: Present: soft, normal bowel sounds. Absent: distended, tenderness, guarding, rebound, rigid Skin exam: Present: warm, dry, intact, normal color. Absent: rash Course Vital Signs 10/14/24 10/14/24 20:30 21:09 Temperature 97.7 F 98.1 F Pulse Rate 72 74 Respiratory 16 18 Rate Blood Pressure 108/76 95/61 O2 Sat by Pulse 97 100 Oximetry Medical Decision Making - Medical Decision Making Was pt. sent in by a medical professional or institution (, PA, [employer], urgent care, hospital, or group home...) When possible be specific @ -No Did you speak to anyone other than the patient for history (EMS, parent, family, police, friend...)? What history was obtained from this source @ -No Did you review nursing and triage notes (agree or disagree)? Why? @ -I reviewed and agree with nursing and triage notes Were old charts reviewed (outside hosp., previous admission, EMS record, old EKG, old radiological studies, urgent care reports/EKG's, group home records)? Report findings @ -No old charts were reviewed Differential Diagnosis (chest pain, altered mental status, abdominal pain women, abdominal pain men, vaginal bleeding, weakness, fever, dyspnea, syncope, headache, dizziness, GI bleed, back pain, seizure, CVA, palpatations, mental health, musculoskeletal)? @ -tick bite, cellulitis, embedded tick EKG interpreted by me (3pts min.). @ -none X-rays interpreted by me (1pt min.). @ -None done CT interpreted by me (1pt min.). @ -None done U/S interpreted by me (1pt. min.). @ -None done What testing was considered but not performed or refused? (CT, X-rays, U/S, labs)? Why? @ -None What meds were considered but not given or refused? Why? @ -None Did you discuss the management of the patient with other professionals (noman toledo i.e. , PA, [employer], lab, RT, psych nurse, rn social services, cage/vault supervisor, teacher, credit administration officer, housing case manager)? Give summary @ -No Was smoking cessation discussed for >3mins.? @ -No Was critical care preformed (if so, how long)? @ -No Were there social determinants of health that impacted care today? How? (Homelessness, low income, unemployed, alcoholism, drug addiction, transportation, low edu. Level, literacy, decrease access to med. care, residential, rehab)? @ -No Was there de-escalation of care discussed even if they declined (Discuss DNR or withdrawal of care, Hospice)? DNR status @ -No What co-morbidities impacted this encounter? (DM, HTN, Smoking, COPD, CAD, Cancer, CVA, ARF, Chemo, Hep., AIDS, mental health diagnosis, sleep apnea, morbid obesity)? @ -None Was patient admitted / discharged? Hospital course, mention meds given and route, prescriptions, significant lab abnormalities, going to OR and other pertinent info. @ -Discharged. 39-year-old female presenting after tick bite. Examination of skin reveals no cellulitis or retained product of tick. Patient is provided with initial dose of azithromycin and full course sent to the pharmacy. Case discussed with Dr. Stone Undiagnosed new problem with uncertain prognosis? @ -No Drug Therapy requiring intensive monitoring for toxicity (Heparin, Nitro, Insulin, Cardizem)? @ -No Were any procedures done? @ -No Diagnosis/symptom? @ -antibiotics prophylaxis for lyme disease s/p tick bite Acute, or Chronic, or Acute on Chronic? @ -acute Uncomplicated (without systemic symptoms) or Complicated (systemic symptoms)? @ -uncomplicated Side effects of treatment? @ -No Exacerbation, Progression, or Severe Exacerbation? @ -No Poses a threat to life or bodily function? How? (Chest pain, [place], [place], pneumonia, PE, COPD, DKA, ARF, appy, cholecystitis, CVA, Diverticulitis, Homicidal, Suicidal, threat to staff... and all critical care pts) @ -No Disposition Clinical Impression: Tick bite Disposition: HOME SELF-CARE Condition: Stable Instructions (If sedation given, give patient instructions): Tick Bite (ED) Additional Instructions: Please return to the Emergency Department if symptoms worsen or any other concerns. Prescriptions: Azithromycin [Zithromax] 500 mg PO DAILY #6 tab Is patient prescribed a controlled substance at d/c from ED?: No Referrals: Bree Orlando DO [Primary Care Provider] - 1-2 days Time of Disposition: 20:55
[2024-10-14] MEDS: AZITHROMYCIN 500 MG TAB PO STA (21:05)
[2024-10-14 21:11] VITALS: BP 95/61; PULSE 74; RESP 18; TEMP 98.1
== END 2024-10-14 21:10 | disposition home or self-care (01) ==
LOC: EC 20:29
DX: S70.362A Insect bite (nonvenomous), left thigh, initial encounter (principal); Z88.0 Allergy status to penicillin; Z88.8 Allergy status to other drugs, medicaments and biological substances; Z88.1 Allergy status to other antibiotic agents; W57.XXXA Bitten or stung by nonvenomous insect and other nonvenomous arthropods, initial encounter
CPT/HCPCS: 99282